=== PATIENT | female | born 1995 | race Hispanic/Latino ===

== ENCOUNTER 2024-01-26 09:45 | Emergency (ER) | payer OTHER, SELFPAY ==
[2024-01-26 09:53] VITALS: BP 127/81; PULSE 95; RESP 14; TEMP 36.6; O2SAT 99; BMI 28.3
--- NOTE | 2024-01-26 10:00 | EKG_ITS ---
[place] [id number] [place] [id number] Test Date: 2024-01-26 Pat Name: Sarah Desai Department: [facility] Room: Gender: Female [employer] Laboratory Manager: LOGAN : 1995 Requested By: Order Number: [id number] Reading MD: Ariel Carroll Measurements Intervals [place] Rate: 86 P: 65 WV: 130 QRS: 40 QRSD: 74 T: 28 QT: 342 QTc: 409 Interpretive Statements Normal sinus rhythm with sinus arrhythmia Electronically Signed On 01-26-2024 10:40:50 PDT by Ariel Carroll
[2024-01-26 11:34] LABS: Adenovirus Not Detected (Not Detect); B. parapertussis Not Detected (Not Detecte); Bordetella pertussis Not Detected (Not Detect); Chlamydophila pneumoniae Not Detected (Not Detect); Coronavirus 229E Not Detected (Not Detect); Coronavirus HKU1 Not Detected (Not Detect); Coronavirus NL 63 Not Detected (Not Detect); Coronavirus OC43 Not Detected (Not Detect); Human Metapneumovirus Not Detected (Not Detect); Human Rhinovirus/Enterovirus Not Detected (Not Detect); Influenza A Not Detected (Not Detect); Influenza B Not Detected (Not Detect); Mycoplasma pneumoniae Not Detected (Not Detect); Parainfluenza Virus 1 Not Detected (Not Detect); Parainfluenza Virus 2 Not Detected (Not Detect); Parainfluenza Virus 3 Not Detected (Not Detect); Parainfluenza Virus 4 Not Detected (Not Detect); Respiratory Syncytial Virus Not Detected (Not Detect); SARS- CoV-2 Not Detected (Not Detecte)
--- NOTE | 2024-01-26 11:44 | ED_ITS ---
HPI - URI/Sore Throat <Elmo Atkins PA-C - Last Filed: 01/26/24 11:53> General Chief Complaint: Upper Respiratory Symptoms Stated Complaint: ear/throat pain, congestion Time Seen by Provider: 01/26/24 11:26 Source: patient Mode of arrival: Ambulatory History of Present Illness HPI Narrative: 28-year-old female with no reported past medical history presents to the ED with 2 days of chest tightness and pressure. Patient states that she has had some URI symptoms including a sore throat and ear fullness for the last 2-3 days. Patient states that she took some Tylenol cold and flu twice yesterday, after both times when she felt her heart beating fast and some chest tightness. Patient denies runny nose, cough, nausea, vomiting. Patient's symptoms are in the substernal and epigastric region, patient also states that it feels similar to a prior episode of heartburn several years ago. Patient denies any leg swelling, leg pain. Related Data Home Medications Medication Instructions Recorded Confirmed No Known Home Medications 01/26/24 01/26/24 Allergies Allergy/AdvReac Type Severity Reaction Status Date / Time No Known Drug Allergies Allergy Verified 01/26/24 09:58 Review of Systems <Elmo Atkins PA-C - Last Filed: 01/26/24 11:53> Constitutional Constitutional: Denies chills, Denies fatigue, Denies fever(s), Denies frequent falls, Denies lethargy and Denies weakness Eyes Eyes: Denies change in vision, Denies eye discharge, Denies irritation and Denies loss of vision ENT Ears, Nose, Mouth, and Throat: Denies change in voice, Denies dizziness, Denies neck pain, Reports sore throat and Denies throat swelling Cardiovascular Cardiovascular: Reports chest pain, Reports rapid heart rate, Denies irregular heart rhythm, Denies lightheadedness, Denies palpitations, Denies dyspnea, Denies dyspnea on exertion and Denies orthopnea Respiratory Respiratory: Denies cough, Denies dyspnea, Denies dyspnea on exertion and Denies wheezing Gastrointestinal Gastrointestinal: Denies abdominal pain, Denies change in bowel habits, Denies diarrhea, Denies nausea and Denies vomiting Musculoskeletal Musculoskeletal: Denies neck pain and Denies numbness Integumentary/Breasts Skin/Breast: Denies pruritus, Denies erythema, Denies rash and Denies wounds Neurologic Neurologic: Denies behavioral changes, Denies confusion, Denies dizziness, Denies frequent falls, Denies loss of vision, Denies numbness and Denies weakness Psychiatric Psychiatric: Denies anxiety, Denies behavioral changes, Denies confusion, Denies depression, Denies homicidal ideation and Denies suicidal ideation Endocrine Endocrine: Denies fatigue, Denies flushing and Denies palpitations Hematologic/Lymphatic Hematologic/Lymphatic: Denies easy bruising Allergic/Immunologic Allergic/Immunologic: Denies urticaria, Denies throat swelling and Denies wheezing Patient History <Elmo Atkins PA-C - Last Filed: 01/26/24 11:53> Social History Smoking Status: Never smoker Smoking Status: Never smoker alcohol intake frequency: 0-2 drinks per day Substance Use Type: does not use Exam <Elmo Atkins PA-C - Last Filed: 01/26/24 11:53> Narrative Exam Narrative: Const General:?cooperative, healthy appearing and comfortable [facility] Head:?normal to inspection Ears:?hearing grossly normal bilaterally Nose:?external nose normal Face and sinus:?normal facial exam and sinuses nontender Mouth:?oral mucosae normal Throat:?posterior oropharynx normal Eyes General:?appearance normal, both eyes and all related structures Neck Neck:?normal visual inspection and no lymphadenopathy noted Resp Effort & Inspection:?normal respiratory effort Auscultation:?clear to auscultation bilaterally Cardio Rate:?regular rate Rhythm:?regular rhythm Neuro General:?patient alert, patient awake and patient oriented x3 Initial Vital Signs Initial Vital Signs: Vital Signs Temperature 97.9 F 01/26/24 09:53 Pulse Rate 95 H 01/26/24 09:53 Respiratory Rate 14 01/26/24 09:53 Blood Pressure 127/81 01/26/24 09:53 Pulse Oximetry 99 01/26/24 09:53 Oxygen Delivery Method Room Air 01/26/24 09:53 <Marcel Valadez DO - Last Filed: 01/26/24 12:06> Initial Vital Signs Initial Vital Signs: Vital Signs Temperature 97.9 F 01/26/24 09:53 Pulse Rate 95 H 01/26/24 09:53 Respiratory Rate 14 01/26/24 09:53 Blood Pressure 127/81 01/26/24 09:53 Pulse Oximetry 99 01/26/24 09:53 Oxygen Delivery Method Room Air 01/26/24 09:53 Course <Elmo Atkins PA-C - Last Filed: 01/26/24 11:53> Orders Ordered: ED Orders 01/26/24 10:00 Respiratory Panel (Film Array) Stat EKG-12 Lead Stat Vital Signs Vital signs: Vital Signs - 8 hr 01/26/24 09:53 Temperature 97.9 F Pulse Rate 95 H Respiratory Rate 14 Blood Pressure 127/81 Pulse Oximetry 99 Oxygen Delivery Method Room Air <Marcel Valadez DO - Last Filed: 01/26/24 12:06> Orders Ordered: ED Orders 01/26/24 10:00 Respiratory Panel (Film Array) Stat EKG-12 Lead Stat Vital Signs Vital signs: Vital Signs - 8 hr 01/26/24 09:53 Temperature 97.9 F Pulse Rate 95 H Respiratory Rate 14 Blood Pressure 127/81 Pulse Oximetry 99 Oxygen Delivery Method Room Air MDM - URI/Sore Throat <EMETERIO Jack Last Filed: 01/26/24 11:53> Lab Data Labs: Lab Results 01/26/24 Range/Units 10:00 Chlamy pneumoniae PCR Not detected (Not Detect) Adenovirus (PCR) Not detected (Not Detect) B.parapertussis DNA PCR Not detected (Not Detecte) Coronavirus OC43 (PCR) Not detected (Not Detect) Coronavirus HKU1 (PCR) Not detected (Not Detect) Coronavirus 229E (PCR) Not detected (Not Detect) SARS-CoV-2 (PCR) Not detected (Not Detecte) Coronavirus NL63 (PCR) Not detected (Not Detect) Human Metapneumovir PCR Not detected (Not Detect) Influenza Type A (PCR) Not detected (Not Detect) Influenza Type B (PCR) Not detected (Not Detect) M. pneumoniae (PCR) Not detected (Not Detect) Parainfluenza 1 (PCR) Not detected (Not Detect) Parainfluenza 2 (PCR) Not detected (Not Detect) Parainfluenza 3 (PCR) Not detected (Not Detect) Parainfluenza 4 (PCR) Not detected (Not Detect) RSV (PCR) Not detected (Not Detect) Entero/Rhino (PCR) Not detected (Not Detect) MDM Narrative Medical decision making narrative: 28-year-old female with no reported past medical history presents to the ED with 2 days of chest tightness and pressure. EKG was obtained which was normal sinus rhythm with sinus arrhythmia. No acute ST-T changes. No axis deviation. Respiratory panel is negative. Patient's symptoms and history are most consistent with side-effects of the Tylenol cold and flu versus acid reflux. No cardiac risk factors, no early cardiac deaths in the family. Unlikely ACS other serious cardio pulmonary etiology. Recommend cessation of the cold and flu medication. Recommend trialing Pepcid AC for the next few days. Patient agrees to monitor symptoms and return to the ED if she has worsening symptoms. ED return precautions discussed with in detail with patient. Patient verbalized understanding. Medical records reviewed: Yes <Marcel Valadez DO - Last Filed: 01/26/24 12:06> Lab Data Labs: Lab Results 01/26/24 Range/Units 10:00 Chlamy pneumoniae PCR Not detected (Not Detect) Adenovirus (PCR) Not detected (Not Detect) B.parapertussis DNA PCR Not detected (Not Detecte) Coronavirus OC43 (PCR) Not detected (Not Detect) Coronavirus HKU1 (PCR) Not detected (Not Detect) Coronavirus 229E (PCR) Not detected (Not Detect) SARS-CoV-2 (PCR) Not detected (Not Detecte) Coronavirus NL63 (PCR) Not detected (Not Detect) Human Metapneumovir PCR Not detected (Not Detect) Influenza Type A (PCR) Not detected (Not Detect) Influenza Type B (PCR) Not detected (Not Detect) M. pneumoniae (PCR) Not detected (Not Detect) Parainfluenza 1 (PCR) Not detected (Not Detect) Parainfluenza 2 (PCR) Not detected (Not Detect) Parainfluenza 3 (PCR) Not detected (Not Detect) Parainfluenza 4 (PCR) Not detected (Not Detect) RSV (PCR) Not detected (Not Detect) Entero/Rhino (PCR) Not detected (Not Detect) ECG Data Attestation: I personally reviewed and interpreted this ECG as follows: Interpretation: Sinus rhythm Ventricular rate of 86 Normal axis Normal QRS No ST T wave changes Discharge Plan Departure Patient Disposition: Home Clinical Impression: Upper respiratory infection Qualifiers: URI type: unspecified URI Qualified Code(s): J06.9 - Acute upper respiratory infection, unspecified Instructions: DI for Viral Upper Respiratory Infection -- Adult Activity Restrictions/Additional Instructions: You were evaluated in the ED today for some upper respiratory infection symptoms and chest pain. Your EKG was normal. It is reassuring that your upper respira tory infection symptoms are improving. It is likely that your palpitations and chest pain were caused by the flu and cold medicine and or or acid reflux. It is advised that you stop the flu medicine, you may still continue to take Tylenol and ibuprofen for your symptoms. Please do take the ibuprofen with food to avoid irritation to the stomach. You may also trial Pepcid AC which is [id number]. You may take the Pepcid AC twice daily, once before breakfast and once prior to tender. You may do this for the next 2 weeks. Please follow- up with your PCP as soon as possible. Please return to the ED if you have worsening symptoms. Prescriptions: No Action No Known Home Medications Stand Alone Forms: Patient Portal/API ED Sign-out <Marcel Valadez DO - Last Filed: 01/26/24 12:06> [facility] Dr Valadez Co-Sign Statement: I was available for consultation during this patient's emergency department visit. This chart is signed by myself for administrative purposes only. I did not have direct contact with this patient during this visit. They were seen independently by the APC.
== END 2024-01-26 11:45 | disposition home or self-care (01) ==
PROVIDERS: Emergency Medicine; Emergency Provider Student in an Organized Health Care Education/Training Program
DX: J06.9 Acute upper respiratory infection, unspecified (principal)
CPT/HCPCS: 87633; 93005; 99281; 99282